=== PATIENT | male | born 1985 | race American Indian/Alaskan Native ===

== ENCOUNTER 2017-10-18 03:40 | Emergency (ER) | payer OTHER ==
[2017-10-18] MEDS ORDERED: NACL 0.9% 1000 ML 1,000 ML IV ONE (04:53)
[2017-10-18 05:22] LABS: Basophils % (Auto) 0.4 % (0.0-1.8); Eosinophils # (Auto) 0.1 K/mm3 (0.0-0.4); Eosinophils % (Auto) 0.5 % (0.0-4.3); Hematocrit 44.4 % (35.5-45.6); Hemoglobin 14.9 gm/dl (11.8-15.2); Lymphocytes # (Auto) 1.5 K/mm3 (1.2-5.4); Lymphocytes % (Auto) 13.3 % (13.4-35.0); Mean Corpuscular HGB Conc 34 % (32-34); Mean Corpuscular Hemoglobin 28 pg (28-32); Mean Corpuscular Volume 85 fl (84-94); Monocytes # (Auto) 1.3 K/mm3 (0.0-0.8); Monocytes % (Auto) 12.1 % (0.0-7.3); Platelet Count 339 K/mm3 (140-440); Red Blood Count 5.24 M/mm3 (3.65-5.03); Red Cell Distribution Width 13.4 % (13.2-15.2)
[2017-10-18 05:31] LABS: Alanine Aminotransferase 11 units/L (7-56); Albumin 3.8 g/dL (3.9-5); BUN/Creatinine Ratio 11; Blood Urea Nitrogen 13 mg/dL (9-20); Calcium 8.8 mg/dL (8.4-10.2); Hemolysis Index 4; Lipase 19 units/L (13-60)
[2017-10-18 05:33] LABS: INR 1.05 (0.87-1.13)
[2017-10-18 05:34] LABS: Partial Thromboplastin Time 36.5 Sec. (24.2-36.6)
[2017-10-18 07:43] VITALS: BP 112/80
--- NOTE | 2017-10-18 08:09 | Emergency Department Report ---
ED Abdominal Pain HPI - General Chief Complaint: GI Bleed Stated Complaint: GI BLEED Time Seen by Provider: 10/18/17 06:31 Source: patient Mode of arrival: Ambulatory Limitations: No Limitations - History of Present Illness Initial Comments: Mr. Richardson is a healthy 31-year-old male who presents with crampy abdominal pain for 2 days and dark stools. He also noticed bright red blood per rectum with brown stools. Gradual onset of symptoms. He took aspirin and Pepto- Bismol to relieve the pain which provided moderate relief. No previous history of peptic ulcer disease. No history of tobacco use. Only social alcohol drinker. MD Complaint: abdominal pain -: Gradual Location: diffuse Radiation: none Migration to: no migration Severity scale (0 -10): 9 Quality: cramping Consistency: constant Improves With: nothing Worsens With: nothing Associated Symptoms: hematochezia. denies: nausea, vomiting, diarrhea, hematemesis Treatments Prior to Arrival: other (aspirin Pepto-Bismol) - Related Data Previous Rx's Medication Instructions Recorded Last Taken Type Famotidine 20 mg PO BID 14 Days #28 tablet 10/18/17 Unknown Rx Allergies Allergy/AdvReac Type Severity Reaction Status Date / Time No Known Allergies Allergy Unverified 10/18/17 04:53 ED Review of Systems ROS: Stated complaint: GI BLEED Other details as noted in HPI Comment: All other systems reviewed and negative ENT: denies: ear pain Respiratory: denies: cough Cardiovascular: denies: chest pain Gastrointestinal: abdominal pain, hematochezia. denies: hematemesis ED Past Medical Hx - Past Medical History Hx Asthma: Yes Hx HIV: Yes - Surgical History Hx Appendectomy: Yes - Social History Smoking Status: Never Smoker Substance Use Type: None - Medications Home Medications: Home Medications Medication Instructions Recorded Confirmed Last Taken Type Famotidine 20 mg PO BID 14 Days #28 tablet 10/18/17 Unknown Rx ED Physical Exam - General Limitations: No Limitations General appearance: alert, in no apparent distress - Head Head exam: Present: atraumatic, normocephalic - Eye Eye exam: Present: normal appearance - ENT ENT exam: Present: mucous membranes moist - Neck Neck exam: Present: normal inspection - Respiratory Respiratory exam: Present: normal lung sounds bilaterally. Absent: respiratory distress, wheezes, rales, rhonchi - Cardiovascular Cardiovascular Exam: Present: regular rate, normal rhythm. Absent: systolic murmur, diastolic murmur, rubs, gallop - GI/Abdominal GI/Abdominal exam: Present: soft, normal bowel sounds. Absent: distended, tenderness, guarding, rebound - Rectal Rectal exam: Present: normal inspection, normal rectal tone, heme (+) stool, normal prostate, other (dark watery grainy stool no gross blood noted melena Hemoccult-positive). Absent: bloody stool, fecal impaction, hemorrhoids, mass, tenderness, prostate tenderness, prostate enlargement - Extremities Exam Extremities exam: Present: normal inspection - Back Exam Back exam: Present: normal inspection - Neurological Exam Neurological exam: Present: alert, oriented X3 - Psychiatric Psychiatric exam: Present: normal affect, normal mood - Skin Skin exam: Present: warm, dry, intact, normal color. Absent: rash ED Course Vital Signs 10/18/17 10/18/17 10/18/17 04:49 06:20 06:31 Temperature 98 F Pulse Rate 103 H 86 Respiratory 16 14 Rate Blood Pressure 121/72 114/78 Blood Pressure [Right] O2 Sat by Pulse 98 94 96 Oximetry 10/18/17 10/18/17 10/18/17 06:38 06:40 06:45 Temperature 98.5 F Pulse Rate 81 83 Respiratory 15 15 16 Rate Blood Pressure 115/75 Blood Pressure 114/78 [Right] O2 Sat by Pulse 96 96 94 Oximetry 10/18/17 10/18/17 10/18/17 07:00 07:15 07:37 Temperature Pulse Rate 82 82 81 Respiratory 16 21 16 Rate Blood Pressure 112/80 112/80 Blood Pressure [Right] O2 Sat by Pulse 96 97 95 Oximetry ED Medical Decision Making - Lab Data Result diagrams: 10/18/17 04:57 10/18/17 04:57 Laboratory Results - last 24 hr 10/18/17 10/18/17 10/18/17 04:57 04:57 04:57 WBC 10.9 RBC 5.24 H Hgb 14.9 Hct 44.4 MCV 85 MCH 28 MCHC 34 RDW 13.4 Plt Count 339 Lymph % (Auto) 13.3 L [place] % (Auto) 12.1 H Eos % (Auto) 0.5 Baso % (Auto) 0.4 Lymph # 1.5 [place] # 1.3 H Eos # 0.1 Baso # 0.0 Seg Neutrophils % 73.7 H Seg Neutrophils # 8.0 H PT 14.3 INR 1.05 APTT 36.5 Sodium 134 L Potassium 4.2 Chloride 94.1 L Carbon Dioxide 27 Anion Gap 17 BUN 13 Creatinine 1.2 Estimated GFR > 60 BUN/Creatinine Ratio 11 Glucose 89 Calcium 8.8 Total Bilirubin 0.40 AST 15 ALT 11 Alkaline Phosphatase 66 Total Protein 7.7 Albumin 3.8 L Albumin/Globulin Ratio 1.0 Lipase 19 Blood Type Antibody Screen 10/18/17 04:57 WBC RBC Hgb Hct MCV MCH MCHC RDW Plt Count Lymph % (Auto) [place] % (Auto) Eos % (Auto) Baso % (Auto) Lymph # [place] # Eos # Baso # Seg Neutrophils % Seg Neutrophils # PT INR APTT Sodium Potassium Chloride Carbon Dioxide Anion Gap BUN Creatinine Estimated GFR BUN/Creatinine Ratio Glucose Calcium Total Bilirubin AST ALT Alkaline Phosphatase Total Protein Albumin Albumin/Globulin Ratio Lipase Blood Type O POSITIVE Antibody Screen Negative Vital Signs - 24 hr 10/18/17 10/18/17 10/18/17 04:49 06:20 06:31 Temperature 98 F Pulse Rate 103 H 86 Respiratory 16 14 Rate Blood Pressure 121/72 114/78 Blood Pressure [Right] O2 Sat by Pulse 98 94 96 Oximetry 10/18/17 10/18/17 10/18/17 06:38 06:40 06:45 Temperature 98.5 F Pulse Rate 81 83 Respiratory 15 15 16 Rate Blood Pressure 115/75 Blood Pressure 114/78 [Right] O2 Sat by Pulse 96 96 94 Oximetry 10/18/17 10/18/17 10/18/17 07:00 07:15 07:37 Temperature Pulse Rate 82 82 81 Respiratory 16 21 16 Rate Blood Pressure 112/80 112/80 Blood Pressure [Right] O2 Sat by Pulse 96 97 95 Oximetry - Medical Decision Making Mr. Richardson presents with abdominal pain and dark stools. I attributed to dark stools and heme positive test to Pepto-Bismol. No significant anemia or tachycardia. I do not suspect GI bleed. I recommended patient to stop taking Pepto-Bismol and aspirin. I have prescribed famotidine twice a day 14 days. I recommend a clear liquid diet. Discharged home. Given clinic referral. Critical care attestation.: If time is entered above; I have spent that time in minutes in the direct care of this critically ill patient, excluding procedure time. ED Disposition Clinical Impression: Dyspepsia, Dark stools Disposition: - TO HOME OR SELFCARE Is pt being admited?: No Does the pt Need Aspirin: No Condition: Stable Instructions: Acute Abdominal Pain (ED) Prescriptions: Famotidine 20 mg PO BID 14 Days #28 tablet Referrals: [facility] [Outside] - 3-5 Days Forms: Work/School Release Form(ED) Time of Disposition: 08:10
== END 2017-10-18 08:50 | disposition home or self-care (01) ==
LOC: ED 03:40
DX: K92.1 Melena (principal); J45.909 Unspecified asthma, uncomplicated; Z90.49 Acquired absence of other specified parts of digestive tract
CPT/HCPCS: 36415; 80053; 83690; 85025; 85610; 85730; 86850; 86900; 86901; 93005; 93010; 99283